=== PATIENT | female | born 1950 | race Caucasian/White ===

== ENCOUNTER 2025-02-06 09:14 | Day surgery (SDC) | payer BC, MEDICAID ==
[~2025-02-06] VITALS: Ht 165.1 cm; Wt 95.3 kg
[~2025-02-06 09:14] MED LIST: APIX5TAB3 PO; CARSR60C PO; LACT1CAP26 PO; NO HOME MEDS; PANT40TA54 PO
[2025-02-06] MEDS ORDERED: normal saline 1000ml 1,000 ML IV SCH (09:45)
[2025-02-06] MEDS ORDERED: fentaNYL/PF 50MCG/1 ML 2ML syringe IV ONE (09:45)
[2025-02-06] MEDS ORDERED: MIDAZolam 1mg/ml 10ml vial IV ONE (09:45)
[2025-02-06] MEDS ORDERED: AMIO200T76 PO (09:46)
[2025-02-06] MEDS ORDERED: METF-1203 PO (09:46)
[2025-02-06] MEDS ORDERED: ATOR20TA66 PO (09:46)
[2025-02-06] MEDS ORDERED: METO-395 PO (09:46)
[2025-02-06] MEDS ORDERED: FOLI1TAB27 PO (09:55)
[2025-02-06] MEDS ORDERED: POTA-192 PO (09:55)
--- NOTE | 2025-02-06 09:55 | ELECTROCARDIOGRAPH REPORT ---
[facility] Test Date: 2025-02-06 Test Time: 09:54:36 Pat Name: AURELIO SALAZAR Department: [facility] O Patient ID: [id number] Room: Gender: F Database Technician: RUPAL : 1950 Requested By: JOE DICKERSON Order Number: [id number] Reading MD: Dr. ANTONIO Schreiber Measurements Intervals [place] Rate: 100 P: 0 ND: 0 QRS: 59 QRSD: 129 T: 33 QT: 415 QTc: 536 Interpretive Statements Atrial fibrillation Nonspecific intraventricular conduction delay Nonspecific T abnormalities, anterior leads Borderline ST elevation, lateral leads Electronically Signed On 02-07-2025 13:05:[address] ANTONIO Schreiber Please click the below link to view image of tracing.
[2025-02-06] MEDS ORDERED: FURO40TA4 PO (10:00)
[2025-02-06] MEDS ORDERED: METH-797 PO (10:00)
[2025-02-06] MEDS ORDERED: NITR0.4T51 SL (10:00)
[2025-02-06] MEDS ORDERED: GABA300C PO (10:00)
[2025-02-06] MEDS ORDERED: LAN0.125T PO (10:00)
[2025-02-06] MEDS ORDERED: DILT240C78 PO (10:01)
[2025-02-06] MEDS ORDERED: DIGO125T PO (10:03)
[2025-02-06] MEDS ORDERED: midazolam 1 mg/ML 2ml injection ONE (10:20)
[2025-02-06] MEDS ORDERED: fentaNYL/PF 50MCG/1 ML 2ML syringe ONE (10:21)
[2025-02-06 10:35] LABS: MEAN PLATELET VOLUME 10.3 FL (7.4-10.4); RED CELL DISTRIBUTION WIDTH 13.9 % (11.5-14.5)
[2025-02-06 10:44] LABS: INR 1.1 INR
[2025-02-06 11:05] LABS: CREATINE KINASE MB 1.3 ng/ml (0.3-3.6); CREATININE 1.44 MG/DL (0.40-0.90); MYOGLOBIN 64.0 ng/ml (9-82); TOTAL CARBON DIOXIDE 32.6 MMOL/L (24-32); eCRCL 31 ML/MIN; eGFR 36 ML/MIN
[2025-02-06 11:30] VITALS: RESP 15; O2SAT 96
[2025-02-06 12:00] VITALS: BP 95/62; PULSE 59; RESP 13; O2SAT 96
[2025-02-06 12:15] VITALS: BP 97/57; PULSE 59; RESP 12; O2SAT 97
[2025-02-06 12:30] VITALS: BP 97/60; PULSE 61; RESP 14; O2SAT 98
[2025-02-06 12:45] VITALS: BP 102/64; PULSE 62; RESP 13; O2SAT 98
[2025-02-06 13:00] VITALS: BP 99/65; PULSE 55; RESP 16; O2SAT 99
--- NOTE | 2025-02-06 13:00 | ELECTROCARDIOGRAPH REPORT ---
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 ANTONIO Schreiber Measurements Intervals [place] Rate: 53 P: 51 AR: 216 QRS: 46 QRSD: 106 T: 40 QT: 499 QTc: 469 Interpretive Statements Sinus rhythm Borderline prolonged AR interval Left atrial enlargement Low voltage, precordial leads Electronically Signed On 02-07-2025 13:05:[address] ANTONIO Schreiber Please click the below link to view image of tracing.
--- NOTE | 2025-02-07 17:46 | CARDIOLOGY REPORT ---
DATE OF SERVICE: 02/06/2025 DICTATING PHYSICIAN: RICHARDSON DICKERSON DO DIRECT CURRENT CARDIOVERSION PREPROCEDURAL DIAGNOSIS: Atrial fibrillation. POSTPROCEDURAL DIAGNOSIS: Atrial fibrillation, cardioverted to sinus rhythm. REFERRING PHYSICIAN: Richardson Dickerson DO. DESCRIPTION OF PROCEDURE: The patient was sedated with fentanyl and Versed. She was then given one 200 joule synchronized shock resulting in conversion to sinus rhythm. There were no complications. PLAN: Ongoing medical therapy. FINAL DIAGNOSIS: Atrial fibrillation, cardioverted to sinus rhythm. RICHARDSON DICKERSON DO TID: [id number] RECEIPT: [id number] RP/VIS
== END 2025-02-06 13:45 | disposition home or self-care (01) ==
LOC: SSTAY O 09:14
PROVIDERS: ATTEND Internal Medicine Cardiovascular Disease
DX: I48.0 Paroxysmal atrial fibrillation (principal); R94.31 Abnormal electrocardiogram [ECG] [EKG]; Z79.01 Long term (current) use of anticoagulants; Z79.899 Other long term (current) drug therapy; Z98.890 Other specified postprocedural states; Z88.0 Allergy status to penicillin; Z88.8 Allergy status to other drugs, medicaments and biological substances; Z82.49 Family history of ischemic heart disease and other diseases of the circulatory system; Z81.8 Family history of other mental and behavioral disorders
CPT/HCPCS: 36415; 80048; 82553; 83735; 83874; 85025; 85610; 92960; 93005; J2250; J3010; J7030; 99152; 99153